=== PATIENT | male | born 1940 | race Caucasian/White ===

== ENCOUNTER → 2023-08-21 07:27 | Outpatient (REF) | payer MEDICARE, OTHER, SELFPAY | LOC: DHVS 07:27 | PROVIDERS: ATTENDING PHYSICIAN Surgery Vascular Surgery | DX: I65.02 Occlusion and stenosis of left vertebral artery (principal) | CPT/HCPCS: 93880 ==

== ENCOUNTER → 2024-08-23 07:31 | Outpatient (REF) | payer MEDICARE, OTHER, SELFPAY | LOC: RAD 07:31 | PROVIDERS: ATTENDING PHYSICIAN Registered Nurse; FAMILY PHYSICIAN Family Medicine | DX: I65.02 Occlusion and stenosis of left vertebral artery (principal) | CPT/HCPCS: 93880 ==

== ENCOUNTER → 2024-11-12 08:40 | Outpatient (REF) | payer MEDICARE, OTHER, SELFPAY | LOC: RAD 08:40 | PROVIDERS: ATTENDING PHYSICIAN Family Medicine | DX: Z09 Encounter for follow-up examination after completed treatment for conditions other than malignant neoplasm (principal); J18.9 Pneumonia, unspecified organism | CPT/HCPCS: 71046 ==